=== PATIENT | female | born 1980 | race Caucasian/White ===

== ENCOUNTER 2020-05-12 22:17 | Emergency (ER) | payer BC, MEDICAID, SELFPAY ==
--- NOTE | ~2020-05-12 | XR_ITS ---
EXAMINATION: XR wrist RT min 3V DATE: 05/12/2020 22:43 INDICATION: Posterior distal right radial pain and swelling post fall TECHNIQUE: Posteroanterior, ulnar deviation, oblique, and lateral views of the right wrist were obtai michelle. COMPARISON: none FINDINGS: Mildly comminuted intra-articular fracture at the distal right radius with minimal displacement. The fracture plane involves the lunate fossa with no significant fracture gap or incongruity evident at t he articular surface. No other fractures identified. Joint spaces are normal. Soft tissue swelling ab out the wrist and carpus. IMPRESSION: 1. Minimally displaced intra-articular fracture of the distal right radius. Reviewed, dictated and finalized at location A.
[2020-05-12 22:25] VITALS: BP 113/83; PULSE 93; RESP 19; TEMP 36.6; O2SAT 97
[2020-05-12] MEDS: HYDROcodone/acetaminophen (*CRX) 5-325 MG TABLET 2 TAB PO (22:55)
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
--- NOTE | 2020-05-12 23:31 | PC.NURSE ---
sugar tong splint applied to right arm. sling applied to right arm
[2020-05-12 23:34] VITALS: BP 123/73; PULSE 85; RESP 20; TEMP 36.6; O2SAT 98
--- NOTE | 2020-05-12 23:39 | PC.NURSE ---
Assisted with nurse Allan in applying sugar tong lower fiber glass to right arm, patient tolerated well.
== END 2020-05-12 23:39 | disposition home or self-care (01) ==
PROVIDERS: Emergency Provider Emergency Medicine; PCP Family Medicine
DX: S62.101A Fracture of unspecified carpal bone, right wrist, initial encounter for closed fracture (principal); W01.0XXA Fall on same level from slipping, tripping and stumbling without subsequent striking against object, initial encounter
CPT/HCPCS: 29125; 73110; 99283; 99284; A4565; A9270

== ENCOUNTER 2020-06-08 09:02 | Outpatient (CLI) | payer BC, MEDICAID, SELFPAY ==
--- NOTE | ~2020-06-08 | XR_ITS ---
XR wrist RT min 3V DATE: 06/08/2020 09:20 INDICATION: Right wrist pain TECHNIQUE: 3 views COMPARISON: 05/15/2020 right wrist FINDINGS: There is a comminuted intra-articular fracture of the distal radius with no significant dis placement or angulation. Normal antegrade inclination of the distal radial articular surface. IMPRESSION: No significant change in position or alignment at comminuted intra-articular fracture of distal radius Reviewed, dictated and finalized at location A. IMPRESSION: No significant change in position or alignment at comminuted intra- articular fracture of distal radius
== END 2020-06-08 09:03 | disposition home or self-care (01) ==
LOC: CHSIMG 09:05
PROVIDERS: PCP Family Medicine; Visit Provider Orthopaedic Surgery
DX: S52.571A Other intraarticular fracture of lower end of right radius, initial encounter for closed fracture (principal)
CPT/HCPCS: 73110

== ENCOUNTER 2021-04-15 10:37 | Emergency (ER) | payer BC, SELFPAY ==
--- NOTE | ~2021-04-15 | XR_ITS ---
EXAMINATION: XR chest 1V portable INDICATION: Cough and congestion TECHNIQUE: Portable AP chest at 1142 hours COMPARISON: None available FINDINGS: The lungs are free of acute opacities. There is no pleural effusion or pneumothorax. The ca rdiomediastinal silhouette is normal. The visualized bones and soft tissues are unremarkable. IMPRESSION: 1. No acute cardiopulmonary abnormality. Reviewed, dictated and finalized at location A.
[2021-04-15 10:52] VITALS: BP 116/69; PULSE 78; RESP 20; TEMP 37.2; O2SAT 99
[2021-04-15 11:12] LABS: Basophils Absolute Auto 0.03 K/mm3 (0.00-0.10); Basophils Percent Auto 0.7 % (0.0-1.0); Eosinophils Absolute Auto 0.43 K/mm3 (0.02-0.50); Hematocrit 37.6 % (35.0-49.0); Hemoglobin 12.5 g/dL (12.0-15.0); Immature Granulocyte Absolute 0.01 K/mm3 (0.00-0.00); Immature Granulocyte Percent A 0.2 % (0.0-0.0); Lymphocytes Percent Auto 9.3 % (18.0-42.0); Mean Corpuscular HGB Conc 33.2 g/dL (32.0-36.0); Mean Corpuscular Hemoglobin 31.3 pg (27.0-31.0); Mean Corpuscular Volume 94.2 fL (78.0-102.0); Monocytes Absolute Auto 0.47 K/mm3 (0.10-0.90); Monocytes Percent Auto 10.9 % (2.0-11.0); Neutrophils Percent Auto 68.9 % (50.0-70.0); Platelet Count Result 263 K/mm3 (150-420); Red Blood Count 3.99 M/mm3 (4.20-5.40); Red Cell Distribution Width 12.2 % (11.6-14.4); White Blood Count 4.3 K/mm3 (4.8-10.8)
[2021-04-15 11:28] LABS: Alanine Aminotransferase 18 U/L (14-59); Albumin Level 3.6 g/dL (3.4-5.0); Alkaline Phosphatase 59 U/L (46-116); Anion Gap 7 mmol/L (8-16); Aspartate Amino Transferase 10 U/L (15-37); Bilirubin,Total 0.2 mg/dL (0.00-1.00); Blood Urea Nitrogen 15 mg/dL (7-18); Calcium 8.3 mg/dL (8.5-10.1); Carbon Dioxide 25 mmol/L (21-32); Chloride 108 mmol/L (98-108); Estimated CRCL calculation 69 ml/min; Estimated Glomerular Filt Rate > 60; Glucose 99 mg/dL (70-99); Osmolality Calculated 290 mOsm/kg (285-295); Potassium 4.2 mmol/L (3.5-5.1); Sodium 140 mmol/L (136-145); Total Protein 6.9 g/dL (6.4-8.2)
[2021-04-15 11:31] LABS: Influenza Control Valid (Valid); SARS-CoV-2 Ag Positive (Negative)
[2021-04-15] MEDS: ACETAMINOPHEN 500 MG TABLET 1000 MG PO (11:52)
[2021-04-15] MEDS: SODIUM CHLORIDE 0.9% IV 1,000 ML 999 ML IV CONT (11:53)
--- NOTE | 2021-04-15 11:57 | ED.NAVMDI ---
HPI - Nausea/Vomiting/Diarrhea General Chief complaint: Nausea/Vomiting/Diarrhea Stated complaint: possible Covid, vomiting,headache Source: patient and family Mode of arrival: ambulatory Limitations: no limitations History of Present Illness HPI Narrative: this is a 40-year-old female presents with some last 2 days of body aches nausea vomiting with no shortness of breath O2 sats are stable is afebrile and presents with some no past medical history no fever chills family members diagnosed with COVID. Currently there is no chest pain, no shortness of breath no audible wheeze wheezing no abdominal pain no dysuria. MD elicited complaint: nausea and vomiting Pertinent past history: anorexia Onset (ago): day(s) Associated nausea: Yes Associated abdominal pain: No Location of pain: diffuse ( body aches) Related Data Allergies Allergy/AdvReac Type Severity Reaction Status Date / Time No Known Allergies Allergy Verified 04/15/21 10:50 Review of Systems Review of Systems: All systems reviewed & are unremarkable except as noted in HPI and below PMFSH Past Medical History Medical History Chronic headaches Distal radius fracture, right (05/14/20) Underweight Surgical History Surgical History No pertinent past surgical history Family History Family History Other Heart disease Social History Social History Alcohol intake: current Substance use: never Exam Const: General: no acute distress Orientation/consciousness: patient oriented x3 HENMT: Head: normal to inspection and contusion Eyes: Pupils: Equal, round and reactive pupils present Neck: Neck: normal visual inspection Chest: Chest palpation & inspection: normal inspection of the chest Resp: Effort & Inspection: normal respiratory effort Cardio: Rate: regular rate Rhythm: regular rhythm GI: GI Palp: Yes Soft to palpation : General: Yes no CVA tenderness Back/Spine/Pelvis: Back: no CVA tenderness Neuro: General: patient oriented x3 and moves all extremities Extrem: General: normal to inspection and no pedal edema Psych: Mental Status: mental status grossly normal Course Course Emergency Course: Patient had COVID exposure currently no comorbidities currently not on any medication afebrile and O2 sats 99% on room air reviewed lab findings x-ray findings and the patient was positive for COVID and for influenza, advised to quarantine, get some rest drink plenty of water keep well hydrated, Tylenol or Motrin for fever and body aches and will send Tamiflu to her pharmacy. Vital Signs Vital signs: Vital Signs Temperature 37.2 C 04/15/21 10:52 Pulse Rate 78 04/15/21 10:52 Respiratory Rate 20 04/15/21 10:52 Blood Pressure 116/69 04/15/21 10:52 Pulse Oximetry 99 04/15/21 10:52 Temperature 37.2 C 04/15/21 10:52 Pulse Rate 78 04/15/21 10:52 Respiratory Rate 20 04/15/21 10:52 Blood Pressure 116/69 04/15/21 10:52 Pulse Oximetry 99 04/15/21 10:52 MDM - Nausea/Vomiting/Diarrhea Lab Data Result diagrams: 04/15/21 11:06 04/15/21 11:06 Labs: Lab Results 04/15/21 04/15/21 04/15/21 Range/Units 11:05 11:05 11:06 WBC 4.3 L (4.8-10.8) K/mm3 RBC 3.99 L (4.20-5.40) M/mm3 Hgb 12.5 (12.0-15.0) g/dL Hct 37.6 (35.0-49.0) % MCV 94.2 (78.0-102.0) fL MCH 31.3 H (27.0-31.0) pg MCHC 33.2 (32.0-36.0) g/dL RDW 12.2 (11.6-14.4) % Plt Count 263 (150-420) K/mm3 MPV 9.0 L (9.2-11.8) fl Immature Gran % (Auto) 0.2 H (0.0-0.0) % Neut % (Auto) 68.9 (50.0-70.0) % Lymph % (Auto) 9.3 L (18.0-42.0) % [place] % (Auto) 10.9 (2.0-11.0) % Eos % (Auto) 10.0 H (1.0-6.0) % Baso % (Auto) 0.7 (0.0-1.0) % Lymph
[2021-04-15 12:30] VITALS: BP 107/75; PULSE 83; RESP 18; O2SAT 99
== END 2021-04-15 12:34 | disposition home or self-care (01) ==
PROVIDERS: Emergency Provider Emergency Medicine; PCP Physician Assistant
DX: U07.1 COVID-19 (principal); J11.1 Influenza due to unidentified influenza virus with other respiratory manifestations
CPT/HCPCS: 36415; 71045; 80053; 85025; 87426; 87804; 96360; 99283; C9803; J7030

== ENCOUNTER 2022-04-07 11:06 | Emergency (ER) | payer BC, MEDICAID, SELFPAY ==
--- NOTE | ~2022-04-07 | XR_ITS ---
XR shoulder LT min 2V 04/07/2022 11:59 Indication: Left shoulder pain after fall Procedure: 4 views left shoulder Comparison: No prior studies for comparison. Findings: There is a transversely oriented lucency of the scapular body. Cannot exclude nondisplaced fracture. There is anatomic alignment. Visualized lung parenchyma is unremarkable. Impression: 1: Possible nondisplaced scapular body fracture. Recommend correlation with CT. Reviewed, dictated and finalized at location A. Impression: 1: Possible nondisplaced scapular body fracture. Recommend correlation with CT.
--- NOTE | ~2022-04-07 | XR_ITS ---
[XR ribs LT 2V ] INDICATION: Left rib pain after fall TECHNIQUE: Frontal projection of the upper left ribs, frontal projection of the lower left ribs, obli que projection of all the left ribs, frontal inspiratory chest x-ray for interpretation. FINDINGS: There are no displaced rib fractures identified. There are no soft tissue abnormality see n. The lungs are clear. IMPRESSION: 1:No acute displaced rib fractures. Reviewed, dictated and finalized at location A.
--- NOTE | ~2022-04-07 | XR_ITS ---
XR elbow LT 2V 04/07/2022 11:59 INDICATION: Left elbow pain PROCEDURE: 4 Views left elbow COMPARISON: No prior studies for comparison. FINDINGS: Fracture, dislocation or subluxation is not identified. No significant joint effusion. The soft tissues appear within normal limits. No foreign bodies are identified. IMPRESSION: 1: NO ACUTE BONE OR JOINT ABNORMALITY IDENTIFIED. Reviewed, dictated and finalized at location A.
--- NOTE | ~2022-04-07 | CT_ITS ---
EXAMINATION: CT shoulder LT wo con DATE: 04/07/2022 12:58 INDICATION: Possible fracture on prior x-ray. Left shoulder pain after fall. TECHNIQUE: Computed tomography (CT) of the left shoulder was performed without intravenous contrast. The dose-length product was 86.23 mGy-cm. Automated exposure control and iterative reconstruction liborio hnique were employed. COMPARISON: Chest x-ray dated 04/07/2022 FINDINGS: There is anatomic alignment of the left shoulder. No acute fracture or traumatic malalignme nt. The lucency seen on prior x-ray likely represents a vascular foramen. Glenohumeral joint intact. Lung parenchyma is unremarkable. Clavicle within normal limits. Surrounding osseous structures and so ft tissues are unremarkable. No foreign bodies. IMPRESSION: 1. No acute fracture. Reviewed, dictated and finalized at location A. IMPRESSION: 1. No acute fracture.
[2022-04-07] MEDS: SODIUM CHLORIDE 0.9% IV 1,000 ML 999 ML IV CONT (11:31)
[2022-04-07] MEDS: ONDANSETRON INJ 4 MG/2 ML VIAL IV PUSH (11:32)
[2022-04-07] MEDS: KETOROLAC (*BKC) 60 MG/2 ML VIAL IM (11:32)
[2022-04-07 11:41] VITALS: BP 107/60; PULSE 86; RESP 20; TEMP 36.2; O2SAT 100
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
[2022-04-07 13:34] VITALS: BP 106/70; PULSE 81; RESP 19; O2SAT 98
== END 2022-04-07 13:49 | disposition home or self-care (01) ==
PROVIDERS: Emergency Provider Emergency Medicine; PCP Nurse Practitioner
DX: T14.8XXA Other injury of unspecified body region, initial encounter (principal); W19.XXXA Unspecified fall, initial encounter
CPT/HCPCS: 71100; 73030; 73070; 73200; 96361; 96372; 96374; 99284; J1885; J2405; J7030

== ENCOUNTER 2023-06-20 17:46 | Emergency (ER) | payer BC, MEDICAID, SELFPAY ==
[2023-06-20 17:51] VITALS: BP 115/89; PULSE 102; RESP 17; TEMP 36.4; O2SAT 100
--- NOTE | 2023-06-20 17:59 | ED.GENADULT ---
HPI - General Adult General Chief complaint: Abdominal Pain Stated complaint: lower abdominal lump Time Seen by Provider: 06/20/23 17:56 Source: patient Mode of arrival: ambulatory Limitations: no limitations History of Present Illness HPI narrative: 43 years old white female presents with pimples and lump at the left labia laterally started 3 days ago. She denies any fever or chills or nausea or vomiting patient does shave her suprapubic area she denies history of diabetes Related Data Allergies Allergy/AdvReac Type Severity Reaction Status Date / Time Penicillins Allergy Anaphylaxis Verified 06/20/23 17:50 Review of Systems Review of Systems: All systems reviewed & are unremarkable except as noted in HPI and below PMFSH Past Medical History Medical History Chronic headaches Distal radius fracture, right (05/14/20) Underweight Surgical History Surgical History No pertinent past surgical history Family History Family History Other Heart disease Social History Social History Alcohol intake: current Substance use: never Living arrangements: with family Exam Narrative: General appearance: Well-developed, well-nourished Skin: Normal color Head: Normocephalic, nontraumatic Abdomen: Soft, nontender, no organomegaly, quiet bowel sounds left labia majora showed 2 pimples, and an abscess 1 x 3 cm red, tender, firm in consistency Neurologic: Alert and oriented ?3, Course Vital Signs Vital signs: Vital Signs Temperature 36.4 C 06/20/23 17:51 Pulse Rate 102 H 06/20/23 17:51 Respiratory Rate 17 06/20/23 17:51 Blood Pressure 115/89 06/20/23 17:51 Pulse Oximetry 100 06/20/23 17:51 Oxygen Delivery Room Air 06/20/23 17:51 Temperature 36.4 C 06/20/23 17:51 Pulse Rate 102 H 06/20/23 17:51 Respiratory Rate 17 06/20/23 17:51 Blood Pressure 115/89 06/20/23 17:51 Pulse Oximetry 100 06/20/23 17:51 Oxygen Delivery Room Air 06/20/23 17:51 Procedures Abscess I/D other: Date of Incision: 06/20/23 Time of Incision: 18:22 Side (if applicable): left Local Anesthetic: lidocaine 1% and with epi Amount of anesthesia used (mL): 5 Technique: needle aspiration and incised with #11 blade Amount of fluid expressed (mL): 6 Irrigation: No Packing used?: iodoform I&D Results: Pus and Blood Complications: pain Abcess I&D Additional Comments: patient tolerated the procedure well Abscess left labia majora externally proximal to the left groin area 1 cm x 3 cm Medical Decision Making MDM Narrative Medical decision making narrative: patient presents with abscess at left labia majora extending knee, incision and drainage done, culture obtained, patient received clindamycin 450 mg p.o. prior to discharge and 1 tablet of Calder. And ibuprofen. Discharged on clindamycin 300 mg q.i.d. for 7 days. Differential Diagnosis Differential Diagnosis: Folliculitis, abscess Vital Signs Vital Signs: Vital Signs Temperature 36.4 C 06/20/23 17:51 Pulse Rate 102 H 06/20/23 17:51 Respiratory Rate 17 06/20/23 17:51 Blood Pressure 115/89 06/20/23 17:51 Pulse Oximetry 100 06/20/23 17:51 Oxygen Delivery Room Air 06/20/23 17:51 Temperature 36.4 C 06/20/23 17:51 Pulse Rate 102 H 06/20/23 17:51 Respiratory Rate 17 06/20/23 17:51 Blood Pressure 115/89 06/20/23 17:51 Pulse Oximetry 100 06/20/23 1
[2023-06-20] MEDS: CLINDAMYCIN HCL 150 MG CAP 450 MG PO (18:29)
[2023-06-20] MEDS: IBUPROFEN 600 MG TABLET PO (18:30)
[2023-06-20] MEDS: HYDROcodone/acetaminophen (*CRX) 5-325 MG TABLET 1 TAB PO (18:30)
[2023-06-20 18:35] VITALS: BP 115/89; PULSE 102; RESP 16; TEMP 36.4; O2SAT 100
--- NOTE | 2023-06-26 14:15 | PC.NURSE ---
[facility] prescribed cl[facility] at discharge. culture report shows sensitivity to clindamycin. no change in plan of care.
--- NOTE | 2023-06-27 13:03 | PC.NURSE ---
FINAL ANAEROBIC CULTURE RESULTS: GRAM STAIN:MANY WHITE BLOOD CELLS SEEN: MANY GRAM POSITIVE COCCI IN CLUSTERS RESULT: NO ANAEROBES ISOLATED FINAL AEROBIC CULTURE RESULTS: ISOLATE 1: HEAVY GROWTH OF MRSA NO CHANGE IN TX NEEDED PER C&S AND DR CARRILLO
== END 2023-06-20 18:35 | disposition home or self-care (01) ==
PROVIDERS: Emergency Provider Emergency Medicine; PCP Nurse Practitioner
DX: N76.4 Abscess of vulva (principal)
CPT/HCPCS: 10061; 56405; 87070; 87075; 87147; 87186; 87205; 99283; A9270

== ENCOUNTER 2024-11-27 09:27 | Emergency (ER) | payer BC, MEDICAID, SELFPAY ==
[2024-11-27 09:29] VITALS: BP 127/97; PULSE 112; RESP 16; TEMP 36.4; O2SAT 100
--- NOTE | 2024-11-27 09:30 | ED_ITS ---
HPI - Skin/Abscess/Foreign Bdy General Stated complaint: abscess on right inner thigh area Time Seen by Provider: 11/27/24 09:29 Source: patient Mode of arrival: ambulatory Limitations: no limitations History of Present Illness HPI narrative: 44-year-old female with the history of MRSA abscess 2 years ago presents to the ED with a 4 day history of -- 3 cm abscess on the right medial thigh. no drainage no fever or chills complaint: abscess/boil Onset (ago): day(s) ( 4 days) Tetanus up to date: yes Location: RLE Severity: moderate Quality: aching Pain Consistency: constant Relieving factors: none Exacerbating factors: none Context: none Associated symptoms: denies other symptoms Treatments prior to arrival: none Related Data Allergies Allergy/AdvReac Type Severity Reaction Status Date / Time Penicillins Allergy Anaphylaxis Verified 06/20/23 17:50 Review of Systems 2 Review of Systems: All systems reviewed & are unremarkable except as noted in HPI and below PMFSH Past Medical History Medical History Underweight Distal radius fracture, right (05/14/20) Chronic headaches Surgical History Surgical History No pertinent past surgical history Family History Family History Other Heart disease Social History Social History Alcohol intake: current Substance use: never Living arrangements: with family Exam 2 Narrative: blood pressure 127/97. Pulse 112. Const: General: no acute distress Nutritional Appearance: thin O rientation/consciousness: patient oriented x3 Limitations: no limitations HENMT: Head: normal to inspection Ears: external ears normal F juan carlos/Nose/Sinus: Normal external nose present Face and sinus: normal facial exam Mouth: Yes Normal oral and palatal mucosa present Teeth and gingiva: dentition normal Throat: posterior oropharynx normal Eyes: Conjunctivae: conjunctivae normal Pupils: Equal, round and reactive pupils present EOM: EOMs intact bilaterally Direct Ophthalmoscopy: no photophobia Neck: Neck: normal visual inspection, no lymphadenopathy and no meningeal signs Chest: Chest palpation & inspection: normal inspection of the chest Resp: Effort & Inspection: normal respiratory effort Auscultation: clear to auscultation bilaterally Cardio: Rate: regular rate Rhythm: regular rhythm GI: Auscultation: normal bowel sounds Other: No tenderness/ rigidity /rebound. : General: Yes no CVA tenderness Back/Spine/Pelvis: Back: no CVA tenderness Skin: General skin exam: normal color Other: Right medial thigh-- at 8:00 a.m. position of the perineum 3 cm abscess surrounding erythema. Abscess is fluctuant. No regional lymphadenopathy. Neuro: General: patient oriented x3, moves all extremities, no meningeal signs, no focal motor deficits and CN's II-XI intact bilaterally Cranial nerves: Yes Nystagmus not present Speech: normal speech Gait exam (Neuro): Normal gait present Extrem: General: normal to inspection, no clubbing, cyanosis or edema and no pedal edema Psych: Mental Status: mental status grossly normal Affect: normal affect Attitude: cooperative Course Course Emergency Course: Right medial thigh abscess-- status post incision. will treat with clindamycin Vital Signs Vital signs: Vital Signs Temperature 36.4 C 11/27/24 09:29 Pulse Rate 112 H 11/27/24 09:29 Respiratory Rate 16 11/27/24 09:29 Blood Pressure 127/97 H 11/27/24 09:29 Pulse Oximetry 100 11/27/24 09:29 Oxygen Delivery Room Air 11/27/24 09:29 Temperature 36.4 C 11/27/24 09:29 Pulse Rate 112 H 11/27/24 09:29 Respiratory Rate 16 11/27/24 09:29 Blood Pressure 127/97 H 11/27/24 09:29 Pulse Oximetry 100 11/27/24 09:29 Oxygen Delivery Room Air 11/27/24 09:29 MDM - Skin/Abscess/Foreign Bdy MDM Narrative Medical decision making narrative: right medial thigh abscess Differential Diagnosis Differential diagnosis: Likely viral exanthem and allergic reaction to drug Medical Records Attestation: I reviewed the patient's medical records. Lab Data Attestation: I reviewed the patient's lab results. 11/27/24 09:42 11/27/24 09:42 Labs: Lab Results 11/27/24 11/27/24 Range/Units 09:32 09:42 WBC 8.2 (4.8-10.8) K/mm3 RBC 4.02 L (4.20-5.40) M/mm3 Hgb 10.7 L (12.0-15.0) g/dL Hct 34.9 L (35.0-49.0) % MCV 86.8 (78.0-102.0) fL MCH 26.6 L (27.0-31.0) pg MCHC 30.7 L (32-36) g/dL RDW 15.5 H (11.6-14.4) % Plt Count 367 (150-420) K/mm3 MPV 8.4 L (9.2-11.8) fl Immature Gran % (Auto) 0.5 H (0.0-0.0) % Neut % (Auto) 74.3 H (50.0-70.0) % Lymph % (Auto) 14.9 L (18.0-42.0) % Armstrong % (Auto) 5.5 (2.0-11.0) % Eos % (Auto) 4.4 (1.0-6.0) % Baso % (Auto) 0.4 (0.0-1.0) % Lymph # (Auto) 1.22 (1.10-4.50) K/mm3 Armstrong # (Auto) 0.45 (0.10-0.90) K/mm3 Eos # (Auto) 0.36 (0.02-0.50) K/mm3 Baso # (Auto) 0.03 (0.00-0.10) K/mm3 Abs Immat Gran (auto) 0.04 H (0.00-0.00) K/mm3 Absolute Neuts (auto) 6.10 (1.70-7.20) K/mm3 Absolute Nucleated RBC 0.00 (0.00-0.00) K/mm3 Nucleated RBC % 0.0 (0-0.0) % Sodium 139 (136-145) mmol/L Potassium 3.6 (3.5-5.1) mmol/L Chloride 103 (98-108) mmol/L Carbon Dioxide 28 (21-32) mmol/L Anion Gap 8 (4-12) mmol/L BUN 14 (7-18) mg/dL Creatinine 0.97 (0.55-1.02) mg/dL Estim Creat Clear Calc 65 ml/min Estimated GFR > 60 (59 - ) Glucose 130 H (70-99) mg/dL POC Capillary Glucose 135 H (65-105) mg/dl Calculated Osmolality 290 (285-295) mOsm/kg Calcium 8.4 L (8.5-10.1) mg/dL Total Bilirubin 0.3 (0.00-1.00) mg/dL AST 14 L (15-37) U/L ALT 15 (14-59) U/L Alkaline Phosphatase 86 (46-116) U/L Total Protein 7.3 (6.4-8.2) g/dL Albumin 3.4 (3.4-5.0) g/dL Discharge Plan Discharge Clinical Impression: Abscess of right thigh Patient Disposition: Home Condition: Stable Instructions: Antibiotic Form, Abscess (ED) Patient Language: Italian Prescriptions: New clindamycin HCl [Cleocin HCl] 300 mg capsule 300 mg PO Q6H Qty: 30 0RF No Action clindamycin HCl 300 mg capsule 300 mg PO Q6H Qty: 28 0RF Follow-up/Referrals: Michelle,MD Chema [Primary Care Provider] - Time of Disposition: 10:16
[2024-11-27 09:36] LABS: Glucose Point of Care 135 mg/dl (65-105)
[2024-11-27 09:46] LABS: Basophils Absolute Auto 0.03 K/mm3 (0.00-0.10); Basophils Percent Auto 0.4 % (0.0-1.0); Eosinophils Absolute Auto 0.36 K/mm3 (0.02-0.50); Eosinophils Percent Auto 4.4 % (1.0-6.0); Hematocrit 34.9 % (35.0-49.0); Hemoglobin 10.7 g/dL (12.0-15.0); Immature Granulocyte Absolute 0.04 K/mm3 (0.00-0.00); Immature Granulocyte Percent A 0.5 % (0.0-0.0); Lymphocytes Absolute Auto 1.22 K/mm3 (1.10-4.50); Lymphocytes Percent Auto 14.9 % (18.0-42.0); Mean Corpuscular HGB Conc 30.7 g/dL (32-36); Mean Corpuscular Hemoglobin 26.6 pg (27.0-31.0); Mean Corpuscular Volume 86.8 fL (78.0-102.0); Mean Platelet Volume 8.4 fl (9.2-11.8); Monocytes Absolute Auto 0.45 K/mm3 (0.10-0.90); Monocytes Percent Auto 5.5 % (2.0-11.0); Neutrophils Percent Auto 74.3 % (50.0-70.0); Platelet Count Result 367 K/mm3 (150-420); Red Blood Count 4.02 M/mm3 (4.20-5.40); Red Cell Distribution Width 15.5 % (11.6-14.4); White Blood Count 8.2 K/mm3 (4.8-10.8)
[2024-11-27 10:01] LABS: Alanine Aminotransferase 15 U/L (14-59); Albumin Level 3.4 g/dL (3.4-5.0); Alkaline Phosphatase 86 U/L (46-116); Anion Gap 8 mmol/L (4-12); Aspartate Amino Transferase 14 U/L (15-37); Bilirubin,Total 0.3 mg/dL (0.00-1.00); Blood Urea Nitrogen 14 mg/dL (7-18); Calcium 8.4 mg/dL (8.5-10.1); Carbon Dioxide 28 mmol/L (21-32); Chloride 103 mmol/L (98-108); Estimated CRCL calculation 65 ml/min; Estimated Glomerular Filt Rate > 60; Glucose 130 mg/dL (70-99); Osmolality Calculated 290 mOsm/kg (285-295); Potassium 3.6 mmol/L (3.5-5.1); Sodium 139 mmol/L (136-145); Total Protein 7.3 g/dL (6.4-8.2)
--- OUTSIDE RECORDS SUMMARY | 2024-11-27 10:16 | XMS_ITS | Clinical Summary ---
Author Organization [facility] Address [address] [place] [address] Care Team Providers Care District Traffic Chief Name Role Phone Unavailable Primary Care Provider Unavailabl e Allergies No known active allergies Medications nortriptyline 25 MG capsule Take 1 capsule by mouth. 12/22/2015 Active orphenadrine ER 100 MG TABLET SR 12 HR 12 hr tablet Take 1 tablet (100 mg total) by mouth 2 (two) times daily as needed (pain). 20 tablet 09/09/2020 Active diclofenac EC 50 MG tablet Take 1 tablet (50 mg total) by mouth 2 (two) times daily as needed (pain). 20 tablet 09/09/2020 Active Social History Tobacco Use Types Packs/Day Years Used Date Smoking Tobacco: Every Day Cigarettes Electronic Cigarettes Smokeless Tobacco: Never Alcohol Use Standard Drinks/Week Comments Not Currently 0 (1 standard drink = 0.6 oz pur e alcohol) Comments No Sex and Gender Information Value Date Recorded Sex Assigned at Not on file Legal Sex Female 5:52 PM REFERENCE INVESTIGATOR Gender Identity Not on file Sexual Orientation Not on file Last Filed Vital Signs Vital Sign Reading Time Taken Comments Blood Pressure 106/86 09/09/2020 9:45 PM REFERENCE INVESTIGATOR Pulse 88 09/09/2020 7:44 PM REFERENCE INVESTIGATOR Temperature 36.2 C (97.2 F) 09/09/2020 7:44 PM REFERENCE INVESTIGATOR Respiratory Rate 18 09/09/2020 7:44 PM REFERENCE INVESTIGATOR Oxygen Saturation 100% 09/09/2020 9:45 PM REFERENCE INVESTIGATOR Inhaled Oxygen Concentration - - Weight 54.4 kg (120 lb) 09/09/2020 7:44 PM REFERENCE INVESTIGATOR Height 170.2 cm (5' 7 ) 09/09/2020 7:44 PM REFERENCE INVESTIGATOR Body Mass Index 18.79 09/09/2020 7:44 PM REFERENCE INVESTIGATOR Plan of Treatment Health Maintenance Due Date Last Done Comments Cervical Cancer Screening Pa p Smear (Age 30 to 64) Every 3 Years 1982 Annual Physical 1985 Pneumococcal Vaccine: Pediat rics (0 to 5 Years) and At-Risk Patients (6 to 49 Years) (1 of 2 - PCV) 1988 Hepatitis C 2000 DTaP, Tdap and Td Vaccines ( 1 - Tdap) 2001 Hepatitis B Vaccines (1 of 3 - 19+ 3-dose series) 2001 Cervical Cancer Screening Pa p with HPV Testing (Age 30 to 64) Every 5 Years 2012 Cervical Cancer Screening with HPV 2012 Mammogram Screening 2022 COVID-19 Vaccine (2023-2 5 season) 2024 HPV Vaccines Aged Out No longer eligi ble based on patient's age to complete this topic Meningococcal B Vaccine Aged Out No l onger eligible based on patient's age to complete this topic Meningococcal Vaccine Aged Out No connie bal eligible based on patient's age to complete this topic RSV Immunizations Under 20 Months Aged Out No longer eligible based on patient's age to complete this topic Insurance [facility]
--- OUTSIDE RECORDS SUMMARY | 2024-11-27 10:16 | XMS_ITS | Encounter Summary ---
Author Organization [facility] Address [facility] [place] [address] Care Team Providers Care Senior Contracts Administrator Name Role Phone Inocencio Weaver MD Primary Care Provider [phone] Encounter Details Date Type Department Care Team (Late st Contact Info) Description 01/19/2019 Abstract SFL CONVERSION [address] [place] [address] , Generic Conversion, Social History Tobacco Use Types Packs/Day Years Used Date Smoking Tobacco: Never Assessed Comments Unknown Sex and Gender Information Value Date Recorded Sex Assigned at Not on file Legal Sex 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
--- NOTE | 2024-11-27 10:36 | PC.NURSE ---
On 11/27/24, the student, [victorina gonzalez ], provided care and completed [facility] documentation on this patient. I have reviewed the student's documentation and agree with the findings.
[2024-11-27] MEDS: CLINDAMYCIN HCL 150 MG CAP 450 MG PO (10:42)
[2024-11-27 10:52] VITALS: BP 117/74; PULSE 72; RESP 18; TEMP 37.1; O2SAT 98
--- OUTSIDE RECORDS SUMMARY | 2024-11-27 11:49 | XMS_ITS | Clinical Summary ---
Author Organization [facility] Address [address] [place] [address] Care Team Providers Care Executive Coordinator Name Role Phone Unavailable Primary Care Provider [...] on file Legal Sex Female 5:52 PM UTILITY SYSTEM REPAIRER Gender Identity Not on file Sexual Orientation Not on file Last Filed Vital Signs Vital Sign Reading Time Taken Comments Blood Pressure 106/86 09/09/2020 9:45 PM UTILITY SYSTEM REPAIRER Pulse 88 09/09/2020 7:44 PM UTILITY SYSTEM REPAIRER Temperature 36.2 C (97.2 F) 09/09/2020 7:44 PM UTILITY SYSTEM REPAIRER Respiratory Rate 18 09/09/2020 7:44 PM UTILITY SYSTEM REPAIRER Oxygen Saturation 100% 09/09/2020 9:45 PM UTILITY SYSTEM REPAIRER Inhaled Oxygen Concentration - - Weight 54.4 kg (120 lb) 09/09/2020 7:44 PM UTILITY SYSTEM REPAIRER Height 170.2 cm (5' 7 ) 09/09/2020 7:44 PM UTILITY SYSTEM REPAIRER Body Mass Index 18.79 09/09/2020 7:44 PM UTILITY SYSTEM REPAIRER Plan of Treatment Health Maintenance Due Date [...] patient's age to complete this topic Insurance [facility]
--- OUTSIDE RECORDS SUMMARY | 2024-11-27 11:49 | XMS_ITS | Encounter Summary ---
Author Organization [facility] Address [facility] [place] [address] Care Team Providers Care Architecture Professor Name Role Phone Inocencio Weaver MD Primary Care Provider [phone] Encounter Details Date Type Department Care Team (Late st Contact Info) Description 01/19/2019 Abstract SFL CONVERSION [address] [place] [address] , Generic Conversion, Social History Tobacco Use Types Packs/Day Years Used Date Smoking Tobacco: Never Assessed Comments Unknown Sex and Gender Information Value Date Recorded Sex Assigned at Not on file Legal Sex Female 5:52 PM MEDIA PRODUCTION OPERATOR Gender Identity Not on file Sexual Orientation Not on file documented as of this encounter Plan of Treatment Not on file documented as of this encounter Visit Diagnoses Not on filedocumented in this encounter Care Teams Architecture Professor Relationship Specialty Start Date End Date Inocencio Weaver MD [address] [place] [phone] PCP - General FAMILY PRACTICE 09/09/20 09/09/20 documented as of this encounter
--- NOTE | 2024-11-28 13:44 | PC.NURSE ---
PRELIMINARY ABSCESS CULTURE NO WBC SEEN FEW GRAM POSITIVE COCCI IN [facility] PT ON CLINDAMYCIN 300MG Q6H FOR [address] ATKISN NO FURTHER ORDERS NEEDED AT THIS TIME
--- NOTE | 2024-11-30 13:39 | PC.NURSE ---
final aerobic culture of abscess reviewed. MRSA isolated. report shows sensitivity to clindamycin. pt was prescribed clindamycin. no change in plan of care
--- NOTE | 2024-12-03 17:17 | PC.NURSE ---
Final wound culture report; Methicillin Resis Staph Aureus, patient discharged on clindamycin, per Dr. Bhandari no further action or change in medication needed.
== END 2024-11-27 10:57 | disposition home or self-care (01) ==
LOC: CHSED 10:34
PROVIDERS: Emergency Provider Internal Medicine Critical Care Medicine; PCP Family Medicine
DX: L02.415 Cutaneous abscess of right lower limb (principal); Z86.14 Personal history of Methicillin resistant Staphylococcus aureus infection
CPT/HCPCS: 10061; 36415; 80053; 82948; 85025; 87070; 87075; 87181; 87205; 99283; J2003